=== PATIENT | male | born 1970 | race Caucasian/White ===

== ENCOUNTER 2018-08-10 13:49 | Emergency (ER) | payer OTHER ==
[~2018-08-10 13:49] MED LIST: Iopamidol 370 76% 100 ML VIAL ONE
[2018-08-10 14:33] LABS: #Monocytes 0.7 thou/uL (0.11-0.59); #Neutrophils 3.6 thou/uL (1.40-6.50); %Basophils 0.8 % (0.0-1.0); %Eosinophils 0.6 % (0.0-10.0); %Lymphocytes 18.6 % (21.0-51.0); %Monocytes 13.2 % (0.0-10.0); %Neutrophils 66.8 % (42.0-75.0); Hemoglobin 14.5 g/dL (14.0-18.0); Mean Corpuscular HGB CONC 31.9 g/dL (32.0-36.0); Mean Corpuscular Hemoglobin 28.2 pg (27.0-31.0); Mean Corpuscular Volume 88.5 fL (78.0-98.0); Mean Platelet Volume 8.8 fL (7.4-10.4); Platelet Count 258 thou/uL (130-400); RBC Distribution Width 11.6 % (11.5-14.5); Red Blood Cell (RBC) Count 5.13 mill/uL (4.70-6.10); White Blood Cell (WBC) Count 5.4 thou/uL (4.8-10.8)
[2018-08-10 14:50] LABS: ALT (SGPT) 59 U/L (8-55); AST (SGOT) 23 U/L (5-34); Albumin 4.5 g/dL (3.5-5.0); Alkaline Phosphatase 62 U/L (40-150); Anion Gap 14 mmol/L (10-20); BUN (Urea Nitrogen) 13 mg/dL (8.9-20.6); Bilirubin, Total 0.7 mg/dL (0.2-1.2); Calc. Creatinine Clearance 0 mL/min (70-130); Calcium 9.7 mg/dL (7.8-10.44); Carbon Dioxide 28 mmol/L (22-29); Chloride 104 mmol/L (98-107); Estimated GFR-MDRD 63; Glucose 99 mg/dL (70-105); Lipase 11 U/L (8-78); Potassium 3.8 mmol/L (3.5-5.1); Protein, Total 7.5 g/dL (6.0-8.3); Sodium 142 mmol/L (136-145)
--- NOTE | 2018-08-10 16:34 | CT ---
ABDOMEN AND PELVIC CT SCAN WITH IV CONTRAST: 08/10/18 HISTORY: 48-year-old male with history of abdominal pain. FINDINGS: Some streaky linear parenchymal changes in both right and left lower lobes and right middle lobe, non specific possibly some chronic change or subsegmental atelectasis or very mild atypical pneumonitis. The liver, gallbladder, pancreas, spleen, adrenal glands are unremarkable. No renal calculus or acute obstruction. There is abnormally dilated mid small bowel with nondilated distal small bowel, evidence for small markie wel obstruction. No CT evidence for acute appendicitis. Colonic diverticulosis without acute divertic ulitis mostly in the sigmoid colon. IMPRESSION: Evidence for small bowel obstruction with marked dilatation of mid small bowel and nondilated distal small bowel. No renal calculus or obstruction. Colonic diverticulosis without diverticulitis. POS: NAM
== END 2018-08-10 18:21 | disposition short-term general hospital (02) ==
LOC: SCSER 13:49
DX: K56.609 Unspecified intestinal obstruction, unspecified as to partial versus complete obstruction (principal); E78.5 Hyperlipidemia, unspecified; Z79.899 Other long term (current) drug therapy
CPT/HCPCS: 74177; 80053; 83605; 83690; 85025